=== PATIENT | male | born 1985 | race Asian ===

== ENCOUNTER 2017-07-18 12:34 | Emergency (ER) | payer MEDICAID ==
[~2017-07-18] VITALS: Ht 180.3 cm; Wt 90.7 kg
[~2017-07-18 12:34] MED LIST: HYDR-565 PO; NO HOME MEDS; ONDA8TAB9 PO
[2017-07-18 14:07] VITALS: BP 128/79
[2017-07-18] MEDS ORDERED: BUPIVAcaine/PF 2.5 mg/ml (0.25%) 30ml vial IJ ONE (15:00)
[2017-07-18] MEDS ORDERED: TETanus/Pertussis (Acell)/Diphther VAC/PF (Tdap-Adult) 0.5ml syringe IM ONE (15:00)
[2017-07-18] MEDS ORDERED: HYDR-565 PO (15:08)
[2017-07-18] MEDS ORDERED: HYDROcodone/acetaminophen 10/325mg tab PO ONE (15:20)
== END 2017-07-18 17:43 | disposition home or self-care (01) ==
LOC: ER 12:34
DX: S68.121A Partial traumatic metacarpophalangeal amputation of left index finger, initial encounter (principal); W26.8XXA Contact with other sharp object(s), not elsewhere classified, initial encounter; Y93.89 Activity, other specified; Y92.89 Other specified places as the place of occurrence of the external cause; Y99.8 Other external cause status
CPT/HCPCS: 12002; 73130; 90471; 90715; 99284; J3490; 12001

== ENCOUNTER 2019-03-01 21:25 | Emergency (ER) | payer MEDICAID ==
[~2019-03-01] VITALS: Ht 180.3 cm; Wt 90.0 kg
[~2019-03-01 21:25] MED LIST changes: +HYDR-4353 PO; -HYDR-565 PO; +LIDOcaine 1% W/epiNEPHrine 1:100,000 20ml vial ONE
[2019-03-01 21:32] VITALS: BP 142/92
[2019-03-01] MEDS ORDERED: TETanus/Pertussis (Acell)/Diphther VAC/PF (Tdap-Adult) 0.5ml syringe IMVAC ONE (22:20)
== END 2019-03-02 02:07 | disposition home or self-care (01) ==
LOC: ER 21:26
DX: S50.851A Superficial foreign body of right forearm, initial encounter (principal); F12.90 Cannabis use, unspecified, uncomplicated; Z98.890 Other specified postprocedural states; W26.8XXA Contact with other sharp object(s), not elsewhere classified, initial encounter; Y93.89 Activity, other specified; Y92.89 Other specified places as the place of occurrence of the external cause; Y99.8 Other external cause status
CPT/HCPCS: 10120; 73080; 90471; 90715; 99284

== ENCOUNTER 2022-11-08 16:05 | Outpatient (CLI) | payer MEDICAID ==
[~2022-11-08 16:05] MED LIST changes: -LIDOcaine 1% W/epiNEPHrine 1:100,000 20ml vial ONE
== END 2022-11-08 23:59 | disposition home or self-care (01) ==
LOC: RAD 16:05
PROVIDERS: ATTEND General Practice
DX: F11.20 Opioid dependence, uncomplicated (principal)
CPT/HCPCS: 93005

== ENCOUNTER 2023-02-25 13:30 | Outpatient (CLI) | payer MEDICAID | END 2023-02-25 23:59 | disposition home or self-care (01) | LOC: RAD 13:30 | PROVIDERS: ATTEND Physician Assistant | DX: R94.31 Abnormal electrocardiogram [ECG] [EKG] (principal); F11.20 Opioid dependence, uncomplicated | CPT/HCPCS: 93005 ==

== ENCOUNTER 2023-03-01 02:58 | Emergency (ER) | payer MEDICAID ==
[~2023-03-01] VITALS: Ht 180.3 cm; Wt 110.0 kg
[2023-03-01] MEDS ORDERED: DOXYCYCLINE 100MG CAPSULE PO STA (03:34)
[2023-03-01] MEDS ORDERED: ceFAZolin 1gm IM kit IM ONE (03:35)
[2023-03-01] MEDS ORDERED: ondansetron 4mg rapidly disintigrating tab PO ONE (03:35)
[2023-03-01] MEDS ORDERED: acetaminophen 325mg tablet PO ONE (03:35)
[2023-03-01] MEDS ORDERED: ibuprofen tablet 400 MG TABLET PO ONE (03:35)
[2023-03-01] MEDS ORDERED: TETanus/Pertussis (Acell)/Diphther VAC/PF (Tdap-Adult) 0.5ml syringe IMVAC ONE (03:35)
[2023-03-01] MEDS ORDERED: CEPH250T PO (03:40)
[2023-03-01] MEDS ORDERED: DOXY-356 PO (03:40)
[2023-03-01 03:56] VITALS: BP 133/90; PULSE 99; RESP 16; TEMP 98.9; O2SAT 98
== END 2023-03-01 03:57 | disposition home or self-care (01) ==
LOC: ER 02:59
DX: L03.115 Cellulitis of right lower limb (principal)
CPT/HCPCS: 90471; 90715; 96372; 99284; J0690

== ENCOUNTER 2023-03-06 04:26 | Emergency (ER) | payer MEDICAID ==
[~2023-03-06] VITALS: Ht 180.3 cm; Wt 113.0 kg
[~2023-03-06 04:26] MED LIST changes: +CEPH250T PO; +DOXY-356 PO
[2023-03-06 04:30] VITALS: TEMP 97.8
[2023-03-06 05:35] LABS: MEAN CORPUSCULAR HEMOGLOBIN 29.9 PG (27.0-31.0); MEAN CORPUSCULAR HGB CONC 32.9 g/dL (33.0-36.5)
[2023-03-06 05:37] LABS: BASOPHILS # (AUTO) 0.1 X10'3 (0-0.2); BASOPHILS % (AUTO) 0.7 % (0-1); EOSINOPHILS # (AUTO) 0.2 X10'3 (0-0.9); EOSINOPHILS % (AUTO) 2.7 % (0-6); HEMATOCRIT 40.4 % (42.0-52.0); HEMOGLOBIN 13.3 g/dl (14.0-17.9); LYMPHOCYTES # (AUTO) 1.7 X10'3 (1.1-4.8); LYMPHOCYTES % (AUTO) 23.1 % (21-51); MEAN CORPUSCULAR VOLUME 90.8 FL (78-98); MEAN PLATELET VOLUME 7.3 FL (7.4-10.4); MONOCYTES # (AUTO) 0.9 X10'3 (0-0.9); MONOCYTES % (AUTO) 11.7 % (2-12); NEUTROPHILS # (AUTO) 4.5 X10'3 (1.8-7.7); NEUTROPHILS % (AUTO) 61.8 % (42-75); PLATELET COUNT 293 X10'3 (140-440); RED BLOOD COUNT 4.45 X10'6 (4.70-6.10); RED CELL DISTRIBUTION WIDTH 13.6 % (11.5-14.5); WHITE BLOOD COUNT 7.3 X10'3 (4.5-11.0)
[2023-03-06 05:38] LABS: ALANINE AMINOTRANSFERASE 30 U/L (12-78); ALBUMIN 3.5 G/DL (3.4-5.0); ALBUMIN/GLOBULIN RATIO 0.9 (1.1-1.5); ALKALINE PHOSPHATASE 89 IU/L (46-116); ANION GAP 5 (8-16); ASPARTATE AMINO TRANSFERASE 20 U/L (10-37); BILIRUBIN,TOTAL 0.3 MG/DL (0.1-1.0); BLOOD UREA NITROGEN 17 MG/DL (7-18); BUN/CREATININE RATIO 18.7 (10.0-20.0); CALCIUM 8.8 MG/DL (8.5-10.1); CHLORIDE 105 MMOL/L (99-107); CREATININE 0.91 MG/DL (0.60-1.10); GLUCOSE 99 MG/DL (70-104); SODIUM 140 MMOL/L (135-145); TOTAL CARBON DIOXIDE 30.1 MMOL/L (24-32); TOTAL PROTEIN 7.3 G/DL (6.4-8.2); eCRCL 120 ML/MIN; eGFR > 90 ML/MIN
[2023-03-06 05:45] LABS: MAGNESIUM 1.9 MG/DL (1.5-2.4); PRO BRAIN NATRIURETIC PEPTIDE < 30 PG/ML (0-125)
[2023-03-06 05:47] LABS: POTASSIUM 4.2 MMOL/L (3.5-5.1)
[2023-03-06] MEDS ORDERED: FURO-150 PO (05:55)
[2023-03-06 06:03] VITALS: BP 120/82; PULSE 88; RESP 18; O2SAT 98
== END 2023-03-06 06:05 | disposition home or self-care (01) ==
LOC: ER 04:27
DX: M79.671 Pain in right foot (principal); R60.0 Localized edema; E88.09 Other disorders of plasma-protein metabolism, not elsewhere classified; F12.90 Cannabis use, unspecified, uncomplicated; Z79.2 Long term (current) use of antibiotics; Z79.899 Other long term (current) drug therapy
CPT/HCPCS: 36415; 71045; 80053; 83605; 83735; 83880; 84145; 84484; 85025; 87040; 93005; 99285

== ENCOUNTER 2023-05-22 14:28 | Emergency (ER) | payer MEDICAID ==
[~2023-05-22] VITALS: Ht 180.3 cm; Wt 112.0 kg
[~2023-05-22 14:28] MED LIST changes: -CEPH250T PO; -DOXY-356 PO
[2023-05-22 14:48] VITALS: BP 125/86; PULSE 78; RESP 18; O2SAT 98
[2023-05-22 14:57] VITALS: TEMP 98
== END 2023-05-22 14:59 | disposition home or self-care (01) ==
LOC: ER 14:29
DX: F11.10 Opioid abuse, uncomplicated (principal); F12.10 Cannabis abuse, uncomplicated; Z87.81 Personal history of (healed) traumatic fracture
CPT/HCPCS: 99281

== ENCOUNTER 2023-05-29 08:35 | Outpatient (CLI) | payer MEDICAID | END 2023-05-29 23:59 | disposition home or self-care (01) | LOC: RAD 08:35 | PROVIDERS: ATTEND Physician Assistant | DX: I51.7 Cardiomegaly (principal); F11.20 Opioid dependence, uncomplicated | CPT/HCPCS: 93005 ==